=== PATIENT | male | born 1990 | race African-American/Black ===

== ENCOUNTER 2018-08-05 05:26 | Emergency (ER) | payer MEDICAID ==
[~2018-08-05] VITALS: Ht 182.9 cm; Wt 83.0 kg
[2018-08-05] MEDS ORDERED: KETOROLAC 60MG/2ML VIAL IM ONE (08:15)
[2018-08-05 08:24] VITALS: BP 136/61
== END 2018-08-05 09:26 | disposition home or self-care (01) ==
LOC: ER 05:26
DX: K64.4 Residual hemorrhoidal skin tags (principal)
CPT/HCPCS: 96372; 99283; J1885